=== PATIENT | female | born 1950 | race Hispanic/Latino ===

== ENCOUNTER 2017-12-22 16:51 | Emergency (ER) | payer MEDICARE, OTHER ==
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
[2017-12-22] MEDS ORDERED: Ibuprofen 200 MG TAB ONE (19:13)
== END 2017-12-22 19:34 | disposition home or self-care (01) ==
LOC: ERS 16:51
DX: M25.511 Pain in right shoulder (principal); M79.1 Myalgia; F41.9 Anxiety disorder, unspecified

== ENCOUNTER 2018-02-05 10:40 | Outpatient (CLI) | payer MEDICARE | END 2018-02-05 10:41 | disposition home or self-care (01) | LOC: BICRAD 10:40 | PROVIDERS: ATTEND Family Medicine | DX: M25.562 Pain in left knee (principal); R06.02 Shortness of breath | CPT/HCPCS: 71045 ==

== ENCOUNTER 2018-02-09 10:02 | Outpatient (CLI) | payer MEDICARE | END 2018-02-09 10:03 | disposition home or self-care (01) | LOC: BICMAMMO 10:02 | PROVIDERS: ATTEND Family Medicine | DX: Z13.820 Encounter for screening for osteoporosis (principal); Z78.0 Asymptomatic menopausal state | CPT/HCPCS: 77080 ==

== ENCOUNTER 2019-07-25 08:29 | Outpatient (CLI) | payer MEDICARE ==
--- NOTE | 2019-07-25 09:13 | BD ---
DEXA BONE DENSITY SCAN: DATE: 07/25/2019. HISTORY: Postmenopausal female undergoing screening for osteoporosis. FINDINGS: Lumbar Spine: BMD (g/cm2) L1 0.932 T-Score: -1.5 L2 1.022 T-Score: -0.1 L3 1.307 T-Score: 2.0 L4 1.331 T-Score: 2.5 L1-L4 1.146 T-Score: 0.9 Femoral Neck: 0.668 T-Score: -1.6 Total Femur: 0.871 T-Score: -0.6 FRAX-WHO fracture risk assessment tool reports a 10-year fracture risk of 11% for major osteoporotic fracture and 1.5% for hip fracture in an untreated patient. IMPRESSION: Normal lumbar spine bone mineral density. Osteopenia within the femoral neck, correlating with a mode rately increased risk for fracture. Transcribed Date/Time: 07/25/2019 9:24 AM
== END 2019-07-25 08:30 | disposition home or self-care (01) ==
LOC: BICMAMMO 08:29
PROVIDERS: ATTEND Family Medicine
DX: Z13.820 Encounter for screening for osteoporosis (principal); M85.88 Other specified disorders of bone density and structure, other site
CPT/HCPCS: 77080

== ENCOUNTER 2020-02-16 08:39 | Outpatient (CLI) | payer MEDICARE ==
--- NOTE | 2020-02-16 09:27 | RAD ---
ABDOMEN 1 VIEW: HISTORY: Upper respiratory infection. FINDINGS: Lumbar spine scoliosis and spondylosis. Surgical clips, evidence for prior cholecystectomy. No over t calculus. Fecal material throughout the colon without evidence for large or small bowel obstructio n. IMPRESSION: Unremarkable abdomen 1 view. No overt calculus. POS: AH
== END 2020-02-16 08:40 | disposition home or self-care (01) ==
LOC: BICRAD 08:39
PROVIDERS: ATTEND Family Medicine
DX: N39.0 Urinary tract infection, site not specified (principal)
CPT/HCPCS: 74018

== ENCOUNTER 2020-02-21 10:46 | Outpatient (CLI) | payer MEDICARE | END 2020-02-21 10:47 | disposition home or self-care (01) | LOC: BICULT 10:46 | PROVIDERS: ATTEND Family Medicine | DX: N39.0 Urinary tract infection, site not specified (principal); I10 Essential (primary) hypertension | CPT/HCPCS: 76770; 76856 ==

== ENCOUNTER 2020-10-29 09:20 | Outpatient (CLI) | payer MEDICARE ==
--- NOTE | 2020-10-29 10:41 | RAD ---
CHEST 1 VIEW: DATE: 10/29/2020. TIME: 9:55 a.m. HISTORY: Flank pain. COMPARISON: None. FINDINGS: The heart size is normal. The lungs are expanded without lobar consolidation, pneumothoraces, or ple ural effusions. IMPRESSION: No acute process. POS: OFF
--- NOTE | 2020-10-29 11:01 | RAD ---
ABDOMEN 1 VIEW: HISTORY: Bilateral flak pain and hematuria. COMPARISON: 02/16/2020. FINDINGS: Postop changes of cholecystectomy are again seen. There is fecal material in the colon which could o bscure urinary tract calculi. No suspicious calcifications are seen. There are degenerative changes with scoliosis of the spine which was also seen on the previous exam. A transitional vertebra is n oted at L5 with left-sided pseudoarthrosis. POS: OFF
== END 2020-10-29 09:21 | disposition home or self-care (01) ==
LOC: BICRAD 09:20
PROVIDERS: ATTEND Family Medicine
DX: R31.9 Hematuria, unspecified (principal); R10.9 Unspecified abdominal pain
CPT/HCPCS: 71045; 74018

== ENCOUNTER 2020-12-25 07:27 | Outpatient (CLI) | payer MEDICARE ==
[2020-12-25] MEDS ORDERED: Iopamidol-370 76% 500 ML 1 ML ONE (09:09)
== END 2020-12-25 07:28 | disposition home or self-care (01) ==
LOC: BICCT 07:27
PROVIDERS: ATTEND Urology
DX: N39.0 Urinary tract infection, site not specified (principal); N20.0 Calculus of kidney; R10.9 Unspecified abdominal pain; R31.9 Hematuria, unspecified; N28.1 Cyst of kidney, acquired; N32.89 Other specified disorders of bladder
CPT/HCPCS: 74178; 82565; Q9967

== ENCOUNTER 2022-10-24 10:00 | Outpatient (CLI) | payer MEDICARE | END 2022-10-24 10:01 | disposition home or self-care (01) | LOC: BICMAMMO 10:00 | PROVIDERS: ATTEND Family Medicine | DX: Z13.820 Encounter for screening for osteoporosis (principal); M85.89 Other specified disorders of bone density and structure, multiple sites; M95.9 Acquired deformity of musculoskeletal system, unspecified | CPT/HCPCS: 77080 ==